=== PATIENT | male | born 1970 | race Caucasian/White ===

== ENCOUNTER → 2022-09-17 11:44 | Outpatient (CLI) | payer OTHER, SELFPAY ==
--- NOTE | ~2022-09-17 | US_ITS ---
EXAMINATION: US thyroid DATE: 09/17/2022 11:57 INDICATION: Thyroid nodule TECHNIQUE: Multiple ultrasound images of the thyroid were obtained. COMPARISON: None. FINDINGS: The right thyroid lobe measures 4.6 x 2.1 x 2.0 cm. The left thyroid lobe measures 3.4 x 1.3 x 1.5 c m. 5 mm wide than tall hypoechoic solid nodule with ill-defined margins and without echogenic foci i n the right thyroid lobe (TI-RADS 4, moderately suspicious , FNA if >=1.5 cm, annual followup is >=1 cm). There is normal echotexture, echogenicity and vascular flow throughout the thyroid gland. IMPRESSION: 1. 5 mm right thyroid nodule which remains below size criteria for either biopsy or follow-up. Reviewed, dictated and finalized at location A. SPORTATION PROGRAM DIRECTOR IMPRESSION: 1. 5 mm right thyroid nodule which remains below size criteria for either biops y or follow-up.
== END ==
PROVIDERS: PCP Family Medicine; Visit Provider Family Medicine
DX: E04.1 Nontoxic single thyroid nodule (principal)
CPT/HCPCS: 76536

== ENCOUNTER 2025-10-21 09:41 | Emergency (ER) | payer BC, SELFPAY ==
--- NOTE | ~2025-10-21 | CT_ITS ---
CT ABDOMEN AND PELVIS WITHOUT CONTRAST Clinical History: left flank pain Comparison: None Technique: Unenhanced axial images lung bases to symphysis pubis Coronal, sagittal reformats CT images acquired with automatic exposure control for dose reduction DLP: 298 mGy-cm Findings: Without intravenous contrast, sensitivity for detecting visceral parenchymal abnormalities decreased. Lung bases: Clear. Visualized heart and pericardium: Coronary artery calcification. Liver: Unremarkable. Gallbladder: Unremarkable. Spleen: Unremarkable. Pancreas: Unremarkable. Adrenal glands: Unremarkable. Kidneys: Right kidney- No hydronephrosis. Tiny stone. Left kidney- minimal hydronephrosis. No renal stones. Distal esophagus/stomach: Unremarkable. Small bowel loops: Normal caliber and wall thickness. Colon: Normal caliber and wall thickness. Normal RLQ appendix. Nodes: No enlarged nodes. Peritoneum: No ascites. No free intraperitoneal air. Mild annabelle mesentery. Urinary bladder: 3 mm stone left UVJ. Prostate: Unremarkable. Bones: No acute bony abnormality. Soft tissues: Unremarkable. Unopacified abdominal aorta: No aneurysmal dilatation. IMPRESSION: 1. 3 mm stone left UVJ with minimal obstruction. Reviewed, dictated and finalized at location R. MET MACHINE OPERATOR
[2025-10-21 10:33] VITALS: BP 172/106; PULSE 61; RESP 18; TEMP 36.4; O2SAT 100
--- OUTSIDE RECORDS SUMMARY | 2025-10-21 10:48 | XMS_ITS | Clinical Summary ---
Author Organization [facility] Address [address] [address] Phone Care Team Providers Care Oncology Registrar Name Role Phone Jono Weaver MD Primary Care Provider [phone] Allergies No known active allergies Medications FIBER, DEXTRIN, ORAL Take by mouth Active pravastatin (PRAVACHOL) 20 mg tabletIndications:M ixed hyperlipidemia Take 2 tablets (40 mg total) by mouth daily 5 07/13/20 26 Active amLODIPine (NORVASC) 5 mg tabletIndications:H ypertension, essential TAKE 1 TABLET(5 MG) BY MOUTH DAILY 90 tablet 5 Active allopurinoL (ZYLOPRIM) 100 mg tabletIndications: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 Jairo Carrasquillo is not up to date on screening tests. He is in need of Colon cancer screening. He is not up to date on needed preventative vaccinations; He is in need of Tdap/Td and Zoster. Need to monitor BP 1-2 times a day; if consistently above 140/90 we will likely start antihypertensive; in any event, I want to know the creatinine first Thyroid ultrasound ordered Labs as ordered; draw between 8 and 10 am (fasting) Referral to GI for colonoscopy Gout 09/05/2022 Overview (09/05/2022): one flare up a year Thyroid nodule 09/05/2022 Immunizations Immunization Administration Dates Next Due Influenza, Quadrivalent, Johanna l Culture-based MDCK, Preservative Free, Antibiotic Free, Intramuscular 08/28/2022 Influenza, Unspecified 07/18/2024,2021,08/10/2014,08/11 Pfizer Sars-Cov-2 Bivalent V accination (12+ YRS) 08/28/2022 Surgical History Surgery Date Site/Laterality Comments ANAL FISSURECTOMY COLONOSCOPY 04/04/2023 Screening. Last colonoscopy in 2005 Medical History Medical History Date Comments Gout one flare up a y ear Thyroid nodule Low testosterone in male Hyperlipidemia Family History Medical History Relation Name Comments Cancer Father SARTHAK Hemochromatosis Father SARTHAK gets phlebot florencia Hypertension Father SARTHAK Lymphoma Father SARTHAK related to Agen t [place] Arthritis Mother TABATHA Hypertension Mother TABATHA Raynaud syndrome Mother TABATHA Rheum arthritis Mother TABATHA Cancer Sister NITA Thyroid cancer Sister NITA Relation Name Status Comments Father SARTHAK Alive Mother TABATHA Alive Sister NITA Alive Social History Tobacco Use Types Packs/Day Years Used Date Smoking Tobacco: Never Cigarettes Passive Smoke Exposure: Never Smokeless Tobacco: Never Tobacco Cessation:Counseling Given: Not Answered AUDIT-C Answer Date Recorded Q1: How often do you have a drink containing alc ohol? 2-4 times a month 04/04/2023 Q2: How many drinks containi ng alcohol do you have on a typical day when you are drinking? 3 or 4 04/04/2023 Q3: How often do you have si x or more drinks on one occasion? Never 04/04/2023 PHQ-2 Answer Date Recorded PHQ-2 Total Score (If total score is 3 or more points, staff should administer the PHQ-9) 0 07/13/2025 Exercise Vital Sign Answer Date Recorde d On average, how many days pe r week do you engage in moderate to strenuous exercise (like a brisk walk)? 4 days 07/13/2024 On average, how many minutes do you engage in exercise at this level? 40 min 07/13/2024 Personal Safety Answer Date Recorded Have you ever been in or are you currently in a harmful physical or emotional relationship or is someone making you feel afraid or unsafe? Denies 04/04/2023 Education Answer Date Recorded What is the highest level of school you have completed or the highest degree you have received? 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 Not on file Not on file Not on file Last Filed Vital Signs Vital Sign Reading Time Taken Comments Blood Pressure 130/85 07/13/2025 9:39 AM CDT Pulse 68 07/13/2025 9:39 AM CDT Temperature 36.1 C (96.9 F) 12/10/2024 11:26 AM SUPERVISOR SHIPFITTERS Respiratory Rate 16 12/10/2024 11:26 AM SUPERVISOR SHIPFITTERS Oxygen Saturation 96% 12/10/2024 11:26 AM SUPERVISOR SHIPFITTERS Inhaled Oxygen Concentration - - Weight 92.1 kg (203 lb) 07/13/2025 9:39 AM CDT Height 177.8 cm (5' 10) 07/13/2025 9:39 AM CDT Body Mass Index 29.13 07/13/2025 9:39 AM CDT Plan of Treatment Health Maintenance Due Date Last Done Comments DTaP/Tdap/Td Vaccine (1 - Tdap) 1982 Regular Well Visit/Exam 18-64 09/05/2023 09/05/2022 Influenza Vaccine (#1) 2025 , 08/28/2022, 08/28/2022, Additional history exists Zoster Vaccine (1 of 2) 12/10/2025 Post poned from 2021 (Insurance / Financial) Covid-19 Vaccine ( - 2024- season) 2026 08/28/2022, 09/14/2021, 11/06/2020, Additional history exists Postponed from 06/27/2025 (Patient declined, but will receive in the future) Depression Screening 07/13/2026 07/13/2025, 03/02/2025, 12/10/2024, Additional history exists Prostate Cancer Screening-PSA 01/19/2027 01/19/2025, 09/09/2022 Colon Cancer Screening-Colonoscopy 04/04/2033 04/04/2023 Hepatitis B Screening Completed 01/19/2025 Hepatitis C Screening Completed 01/19/2025 Pneumococcal vaccine <65 Aged Out No longer eligible based on patient's age to complete this topic Procedures Procedure Name Priority Date/Time Associated Diagnosis Comments HEPATITIS C ANTIBODY Routine 01/19/2025 8:44 AM CDT Need for hepatitis C screening test PSA SCREEN Routine 01/19/2025 8:44 AM CDT Screening PSA (prostate specific antigen) COLONOSCOPY 04/04/2023 7:55 AM CDT from Last 3 Months or Most Recently Relevant to Health Maintenance Results * PSA screen (01/19/2025 8:44 AM CDT) PSA-Total 1.54 <=3.90 ng/mL Comment: Interpretive Data AGE SEX REFERENCE INTERVAL 0 minutes-150 years Female None 0 minutes-49 years Male None 50-59 years Male 0-3.90 60-69 years Male 0-5.40 70-79 years Male 0-6.20 80-150 years Male 0-6.20 The Chantal PSA Total assay procedure was used. Results from different manufacturers or methods may not be comparable. Serial testing should be performed using the same method. Current interpretive data last revised 22. Blood 01/19/2025 8:44 AM CDT 01/19/2025 7:13 PM CDT us Jono Weaver MD LAB BLOOD ORDERABLES Final Result [id number] Department [place] [address] * Hepatitis C antibody Blood (01/19/2025 8:44 AM CDT) Hep C Ab Nonreactive Nonreactive Comment: Interpretive Data Nonreactive: Antibodies to HCV not detected. Does NOT exclude the possibility of recent exposure to HCV. Equivocal: Equivocal for HCV antibodies. Supplemental molecular testing will be automatically performed to determine infection status in accordance with current CDC screening recommendations. Reactive: Positive for HCV antibodies. This may represent current or past HCV infection. Supplemental molecular testing will be automatically performed to determine current infection status in accordance with current CDC screening recommendations. Interpretive data was last revised on 2020. Blood 01/19/2025 8:44 AM CDT 01/19/2025 7:13 PM CDT us Jono Weaver MD LAB MICROBIOLOGY - GENERAL ORDERABLES Final Result [id number] Department [place] [address] * COLONOSCOPY (04/04/2023 7:55 AM CDT) Anatomical Region Laterality Modality Other Narrative Procedure Note Breezy Jacques MD - 04/04/2023 7:55 AM CDT [facility] Patient Name: Jairo Carrasquillo Procedure Date: 04/04/2023 7:55 AM Date of : 1970 Admit Type: Outpatient Age: 52 Gender: Male Note Status: Finalized Attending MD: Breezy Jacques M.D. Procedure Date: 04/04/2023 Procedure: Colonoscopy Indications: Screening for colon cancer: Family history of colorectal cancer in distant relative(s) Providers: Breezy Jacques M.D., FARIDEH Polo (Anesthesia Staff), Chana Andres RN, Salvador, Information Systems Project Manager, Yumiko Alatorre, Information Systems Project Manager Referring MD: Jono Weaver M.D. Medicines: Monitored Anesthesia Care Complications: No immediate complications. Estimated blood loss: Minimal. Estimated Blood Loss: Estimated blood loss was minimal. Procedure: Pre-Anesthesia Assessment: - Prior to the procedure, a History and Physicalwas performed, and patient medications and allergieswere reviewed. The patient is competent. The risks and benefits of the procedure and the sedation optionsand risks were discussed with the patient. Allquestions were answered and informed consent was obtained. Patient identification and proposed procedure were verified by the physician, the nurse and the surgical nurse practitioner in the procedure room. Mental Status Examination: alert and oriented. AirwayExamination: normal oropharyngeal airway and neck mobility. Respiratory Examination: clear to auscultation. CV Examination: normal. Prophylactic Antibiotics: The patient does not require prophylactic antibiotics. Prior Anticoagulants: The patient has taken no anticoagulant or antiplatelet agents. ASA Grade Assessment: II - A patient with mild systemicdisease. After reviewing the risks and benefits, the patient was deemed in satisfactory condition to undergo the procedure. The anesthesia plan was to use monitored anesthesia care (MAC). Immediately prior to administration of medications, the patient was re-assessed for adequacy to receive sedatives. The heart rate, respiratory rate, oxygen saturations, blood pressure, adequacy of pulmonary ventilation,and response to care were monitored throughout the procedure. The physical status of the patient was re-assessed after the procedure. - The risks and benefits of the procedure and the sedation options and risks were discussed with the patient. All questions were answered and informed consent was obtained. After I obtained informed consent, the scope was passed under direct vision. Throughout theprocedure, the patient's blood pressure, pulse, and oxygen saturations were monitored continuously. The scopewas passed under direct vision. The Colonoscope was introduced through the anus and advanced to the the cecum, identified by appendiceal orifice andileocecal valve. The colonoscopy was performed without difficulty. The patient tolerated the procedurewell. The quality of the bowel preparation was adequate.The bowel preparation used was SUPREP via split dose instruction. Findings: Two sessile polyps were found in the ascending colon. The polyps were3 to 5 mm in size. These polyps were removed with a cold biopsyforceps. Resection and retrieval were complete. Estimated blood loss wasminimal. The exam was otherwise without abnormality on direct and retroflexion views. The digital rectal exam was normal. Impression: - Two 3 to 5 mm polyps in the ascending colon,removed with a cold biopsy forceps. Resected andretrieved. - The examination was otherwise normal on directand retroflexion views. Recommendation: - Await pathology results. - Repeat colonoscopy in 5 years for surveillance. Procedure Code(s): --- Professional --- 97553, Colonoscopy, flexible; with biopsy, singleor multiple Diagnosis Code(s): --- Professional --- Z12.11, Encounter for screening for malignantneoplasm of colon Z80.0, Family history of malignant neoplasm of digestive organs D12.2, Benign neoplasm of ascending colon CPT copyright 2020 [employer]. All rights reserved. The codes documented in this report are preliminary and upon provider contracting consultant reviewmay be revised to meet current compliance requirements. Electronically signed by Breezy Jacques M.D. Breezy Jacques M.D. 04/04/2023 8:40:06 AM Number of Addenda: 0 Note Initiated On: 04/04/2023 7:55 AM us Breezy Jacques MD ENDOSCOPY PROCEDURES Fi nal Result from Last 3 Months or Most Recently Relevant to Health Maintenance Insurance [facility] PL[facility] ACCESS CHOICE Care Teams Oncology Registrar Relationship Specialty Start Date End Date Jono Weaver MD [facility] [address] [place] [address] PCP - General Family Medicine 09/05/22
--- NOTE | 2025-10-21 10:56 | ED_ITS ---
HPI - Back Pain/Injury General Chief Complaint: Abdominal Pain Stated Complaint: kidney stone Time Seen by Provider: 10/21/25 10:29 History of Present Illness HPI Narrative: Patient is a 55-year-old male who presents ER with sudden onset left flank pain. Began this morning. It is wrapping around into his left lower quadrant. He is developing urinary frequency. He is having nausea with vomiting. He cannot keep anything down. He has never had pain like this before. No history of previous kidney stones. No diarrhea. No other complaints. Related Data Allergies Allergy/AdvReac Type Severity Reaction Status Date / Time No Known Allergies Allergy Verified 10/21/25 10:33 Review of Systems Review of Systems: All systems reviewed & are unremarkable except as noted in HPI and below Constitutional: Constitutional: Reports no additional constitutional complaints Cardiovascular: Cardiovascular: Reports no additional cardiovascular complaints Respiratory: Respiratory: Reports no additional respiratory complaints Gastrointestinal: Gastrointestinal: Reports no additional gastrointestinal complaints Genitourinary: Genitourinary: Reports no additional male genitourinary complaints [facility] Past Medical History Medical History (Updated 10/21/25 @ 12:55 by Darrian Crystal MD) Impacted cerumen, left ear Family History Family History (System 07/31/20 @ 15:35 by Nikolai Negron) Father Hypertension Family history of hemochromatosis Sibling Family history of cardiac disorder Family history of malignant neoplasm of thyroid Mother Family history of cardiac disorder Father Hypertension Family history of hemochromatosis Sibling Family history of cardiac disorder Family history of malignant neoplasm of thyroid Mother Family history of heart disease in male family member before age 55 Social History Social History (Updated 01/08/21 @ 08:57 by Carmen Alas [facility]) Smoking status: Never smoker Alcohol intake: current Substance use: never Exam Narrative: GENERAL: Uncomfortable-appearing, well-nourished, and in moderate distress. HEAD: Normocephalic, atraumatic. ENT: Nares clear, no rhinorrhea or epistaxis. Mucous membranes moist. CHEST: Clear to auscultation. No respiratory distress. HEART: Regular rate and rhythm. Normal peripheral pulses. ABDOMEN: Soft, nontender, nondistende. EXTREMITIES: Normal range of motion. No edema. SKIN: Warm, dry, no rash. NEURO: Alert and oriented x3. PSYCH: Normal mood and affect. Course Course Emergency Course: Patient is passing small 3 mm stone. It is entering the bladder. We will strain urine. Treat at home with oral pain medication antiemetics. Also F ramonita. Received Toradol and morphine here. Vital Signs Vital signs: Vital Signs Temperature 97.6 F 10/21/25 10:33 Pulse Rate 61 10/21/25 10:33 Respiratory Rate 18 10/21/25 10:33 Blood Pressure 172/106 H 10/21/25 10:33 Pulse Oximetry 100 10/21/25 10:33 Temperature 97.6 F 10/21/25 10:33 Pulse Rate 72 10/21/25 12:17 Respiratory Rate 14 10/21/25 12:17 Blood Pressure 172/106 H 10/21/25 10:33 Pulse Oximetry 98 10/21/25 12:17 MDM Differential Diagnosis Differential Diagnosis: Kidney stones, UTI, diverticulitis, back strain, vertebral fracture Lab Data [facility] Lab Attestation statement: I personally reviewed the patient's lab results. Labs: Lab Results 10/21/25 Range/Units 12:15 Urine Color Yellow (Yellow) Urine Appearance Clear (Clear) Urine pH 7.0 (5.0-9.0) Ur Specific [place] 1.019 (1.001-1.035) Urine Protein Negative (Negative) mg/dL Urine Glucose (UA) Negative (Negative) mg/dL Urine Ketones Negative (Negative) mg/dL Ur Blood (Man) 1+ H (Negative) Urine Nitrate Negative (Negative) Urine Bilirubin Negative (Negative) Urine Urobilinogen 0.2 (<2.0) mg/dL Leukocyte Esterase Rfl Negative (Negative) MARY/UL Urine RBC 6-10 H (0-2) /hpf Urine WBC 0-5 (0-3) /hpf Ur Squamous Epith Cells None seen (Few) /hpf Urine Bacteria None seen /hpf Urine Casts 0-2 Imaging Data Attestation: I personally reviewed and interpreted this imaging study as follows: Radiologist's impression: ITS Impressions Abdomen/Pelvis CT 10/21/25 11:21 IMPRESSION: 1. 3 mm stone left UVJ with minimal obstruction. Discharge Plan Discharge Clinical Impression: Ureterolithiasis Patient Disposition: Home Condition: Stable Instructions: How to Strain Your Urine (ED), Ureteral Stones (ED) Additional Instructions: Return to the emergency department if you develop severe abdominal pain, severe nausea and vomiting to the point where you are unable to keep down fluids, if you develop chest pain or difficulty breathing, blood in your stool, dizziness or fainting, or if you develop any other new or concerning symptoms as these could be signs of more serious medical illness. Try to stay well hydrated. Patient Language: Mauritanian Prescriptions: New hydrocodone-acetaminophen 5-325 mg tablet 1 tablet PO Q6H PRN (Reason: pain) Qty: 10 0RF tamsulosin 0.4 mg capsule 0.4 mg PO DAILY Qty: 4 0RF ondansetron 4 mg tablet,disintegrating 4 mg PO Q6H PRN (Reason: nausea and vomiting) Qty: 10 0RF Follow-up/Referrals: Owen,Jono Love MD [Primary Care Provider, Unknown] Gael Patel MD [Physician, Urology] - 1 Week
[2025-10-21] MEDS: KETOROLAC 30 MG/ML VIAL (*BKC) IV PUSH (10:57)
[2025-10-21] MEDS: SODIUM CHLORIDE 0.9% IV 1,000 ML 999 ML IV CONT (10:58)
[2025-10-21] MEDS: ONDANSETRON INJ 4 MG/2 ML VIAL IV PUSH (10:58)
[2025-10-21] MEDS: MORPHINE SULFATE (*CRX) 4 MG/ML INJ IV PUSH (12:10)
[2025-10-21 12:17] VITALS: PULSE 72; RESP 14; O2SAT 98
[2025-10-21 12:30] LABS: Add Urine Microscopic? YES; Appearance Urine Clear (Clear); Glucose Urine UA Negative (Negative); Leukocyte Esterase Ur Negative LEU/UL (Negative); Nitrate Urine Negative (Negative); Non Pathogenic Casts 0-2; Specific Grav Ur 1.019 (1.001-1.035)
[2025-10-21 13:18] VITALS: BP 147/75; PULSE 81; RESP 18; TEMP 36.6; O2SAT 97
== END 2025-10-21 13:21 | disposition home or self-care (01) ==
PROVIDERS: Emergency Provider Emergency Medicine; PCP Family Medicine
DX: N20.1 Calculus of ureter (principal)
CPT/HCPCS: 74176; 81001; 96361; 96374; 96375; 99284; J1885; J2270; J2405; J7030